=== PATIENT | female | born 1960 ===

== ENCOUNTER 2016-10-14 08:14 | Inpatient (IN) | payer MEDICAID ==
[2016-10-14] MEDS ORDERED: Sodium Chloride 0.9% 1,000 ML IV ONE ×3 (08:33→14:10)
[2016-10-14] MEDS ORDERED: Sodium Chloride 0.9% 1,000 ML ONE (09:03)
--- NOTE | 2016-10-14 09:04 | C.PDOC ---
History Of Present Illness 56 y/o female presents to the ED with complaints of right leg wound which worsened over the last week. Pt followed up with Dr Barfield in office gave topical cream. Pt has been using cream but symptoms persist. Notes h/o of wound to the area x 1 yr. Denies fever, discharge, change in sensation, trauma, SOB, calf tenderness, or any other complaints. 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 Limitations: language barrier Onset/Duration Of Symptoms: Days Current Symptoms Are (Timing): Worse Severity: Moderate Recent travel outside of the [place]: No Past Medical History Reviewed: Historical Data, Nursing Documentation, Vital Signs Vital Signs: Last Vital Signs Temp 97.9 F 10/14/16 10:14 Pulse 59 L 10/14/16 10:14 Resp 18 10/14/16 10:14 BP 112/70 10/14/16 10:14 Pulse Ox 99 10/14/16 10:14 - Medical History PMH: Hypercholesterolemia - [facility] Procedures DRAINAGE OF RIGHT FOOT SKIN, EXTERNAL APPROACH, DIAGNOSTIC (02/14/16) EXCISION OF R FOOT SUBCU/FASCIA, OPEN APPROACH (02/14/16) REPAIR R FOOT SUBCU/FASCIA, OPEN APPROACH (02/14/16) REPLACE R FOOT SKIN W NONAUT SUB, PART THICK, 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 Constitutional: Negative for: Fever, Chills Skin: Positive for: Other (right leg wound) Physical Exam - Physical Exam Appears: Non-toxic, No Acute Distress Skin: Warm, Dry Head: Atraumatic, Normacephalic Eye(s): bilateral: Normal Inspection, EOMI Nose: Normal Oral Mucosa: Moist Chest: Symmetrical Cardiovascular: Rhythm Regular, No Murmur Respiratory: Normal Breath Sounds, No Rales, No Rhonchi, No Wheezing Extremity: Normal ROM, No Calf Tenderness, Capillary Refill (< 2 sec), Other ((+ ) venous status changes to medial aspect of ankle with central crusting/scab and some ertyhema) Pulses: Left Dorsalis Pedis: Normal, Right Dorsalis Pedis: Normal Neurological/Psych: Oriented x3, Normal Speech, Normal Cognition, Normal Motor, Normal Sensation ED Course And Treatment - Laboratory Results Result Diagrams: 10/14/16 09:02 10/14/16 09:02 O2 Sat by Pulse Oximetry: 98 (room air) Pulse Ox Interpretation: Normal Progress Note: Plan: labs, EKG, UA, IV fluids, venous duplex. Pt refused pain medications. Called left message for Lico at 0915. Venous duplex negative for DVT. Case discussed with Dr Norton (per RX instructs) who instructs admission under Dr barfield. Call made out to Dr Barfield, no call back. 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 - Scribe Statement The provider has reviewed the documentation as recorded by the Scribadama Nguyen All medical record entries made by the Parrisibadama were at my direction and personally dictated by me. I have reviewed the chart and agree that the record accurately reflects my personal performance of the history, physical exam, medical decision making, and the department course for this patient. I have also personally directed, reviewed, and agree with the discharge instructions and disposition.
[2016-10-14 09:06] LABS: BASO % 0.6 % (0.0-2.0); EOS # 0.3 K/uL (0.0-0.7); EOS % 4.7 % (0.0-4.0); HEMATOCRIT 38.3 % (34.0-47.0); LYMPH # 3.3 K/uL (1.0-4.3); LYMPH % 53.3 % (20.0-40.0); MEAN CORPUSCULAR HEMOGLOBIN 29.6 pg (27.0-31.0); MEAN CORPUSCULAR HGB CONC 33.6 g/dL (33.0-37.0); MEAN PLATELET VOLUME 9.2 fL (7.2-11.7); MONO # 0.5 K/uL (0.0-0.8); MONO % 7.9 % (0.0-10.0); RED CELL DISTRIBUTION WIDTH 12.8 % (11.5-14.5); WHITE BLOOD COUNT 6.2 K/uL (4.8-10.8)
[2016-10-14 09:14] LABS: CHLORIDE 105 mmol/L (98-107)
[2016-10-14 09:15] LABS: SODIUM 141 mmol/L (132-148)
[2016-10-14 09:17] LABS: ALB/GLOB RATIO 1.4 (1.0-2.1); ALKALINE PHOSPHATASE 87 U/L (38-126); AST/SGOT 23 U/L (14-36); BILIRUBIN,TOTAL 0.8 mg/dL (0.2-1.3); CARBON DIOXIDE 27 mmol/L (22-30); GFR AFRICAN-AMERICAN > 60; TOTAL PROTEIN 7.4 g/dL (6.3-8.3)
[2016-10-14 09:18] LABS: ALT/SGPT 23 U/L (9-52); BLOOD UREA NITROGEN 15 mg/dL (7-17); CALCIUM 9.3 mg/dl (8.6-10.4); GLUCOSE,RANDOM 100 mg/dL (65-105)
[2016-10-14 09:32] LABS: INR 1.1
[2016-10-14 09:33] LABS: RBC URINE < 1 /hpf (0-3); URINE BILIRUBIN NEGATIVE (NEGATIVE); URINE BLOOD NEGATIVE (NEGATIVE); URINE COLOR Yellow (YELLOW); URINE GLUCOSE (UA) NORMAL (Normal); URINE KETONE NEGATIVE (NEGATIVE); URINE PROTEIN NEGATIVE (NEGATIVE); URINE UROBILINOGEN NORMAL mg/dL (0.2-1.0)
[2016-10-14 09:38] LABS: URINE LEUKOCYTE ESTERASE 1+ Leu/uL (Negative); WBC URINE 5 /hpf (0-5)
[2016-10-14] MEDS ORDERED: Propofol 10 mg/ml Inj (20 ML) ONE (13:06)
[2016-10-14] MEDS ORDERED: Midazolam 2 MG/2 ML VIAL ONE (13:06)
[2016-10-14] MEDS ORDERED: ceFAZolin IV 1 gm in Dextrose 1 GM/50 ML BAG IVPB ONE ×2 (13:14→13:15)
[2016-10-14] MEDS ORDERED: Bupivacaine HCl 0.25% PF (10 ml) Inj ONE (13:15)
[2016-10-14] MEDS ORDERED: HYDROmorphone 0.5 mg/0.5 ml ISec IVP PRN (13:48)
--- NOTE | 2016-10-14 17:07 | OP ---
PROCEDURE DATE: 10/14/2016 PREOPERATIVE DIAGNOSIS: Abscess and cellulitis of the right leg. POSTOPERATIVE DIAGNOSIS: Abscess and cellulitis of the right leg. PROCEDURE PERFORMED: Drainage, debridement of right leg ulcer with drainage of abscess, repair of bl ood vessel and partial tissue transfer closure. SURGEON: Declan Barfield MD. ANESTHESIA: General. ESTIMATED BLOOD LOSS: 20 mL. POSTOPERATIVE CONDITION: Stable. INDICATIONS FOR SURGERY: This is a 56-year-old female who presents with a right lower extremity ulce r surrounded by cellulitis and possible abscess. She is taken to the OR for drainage under anesthesi a with debridement. DESCRIPTION OF PROCEDURE: The patient taken to the operating room. IV sedation was administered and the right leg and ankle were prepped and draped. Local anesthesia was administered and the ulcer wa s sharply debrided and pus was drained and cultured. Bleeding was controlled using the Bovie and exp osed blood vessel was repaired. A partial tissue transfer closure was performed at the periphery. T he central portion of wound was packed open and dressed with Xeroform and a dry sterile dressing. Th e patient tolerated the procedure well, returned to recovery room in stable condition. Declan Barfield MD cc: [id number] TT: 10/14/2016 17:06:50 [place]
[2016-10-14] MEDS: ceFAZolin 1 gm FROZEN Premix 1 GM/50 ML ML IVPB SCH ×2 (19:00→22:08)
--- NOTE | 2016-10-14 20:18 | CP.PCM.CON ---
<Maik Brown - Last Filed: 10/14/16 20:04> History of Present Illness - History of Present Illness History of Present Illness: Consult Note- Hospitalist Service Patient was a 56 year old female that was sent in by Dr. Barfield for I&D of right leg ulcer. Patient was taken to OR today by Dr. Barfield for I&D. Patient has a PMHx of urinary incontinence, hyperlipidemia, chronically dry throat. Patient currently reports no acute complaints at this time. Patient reports that she had the wound for one year. She says she had surgery on the same leg for a similar problem last year. PMHx: as stated above PSHx: R ankle abscess Allergies: NKDA Fam hx: Denies Social hx: Denies smoking, alcohol, drugs Review of Systems - Constitutional Constitutional: absent: Chills, Daytime Sleepiness, Fever, Night Sweats, Weakness - EENT Nose/Mouth/Throat: absent: Nasal Congestion, Nasal Discharge - Cardiovascular Cardiovascular: absent: Chest Pain, Irregular Heart Rhythm, Leg Edema, Palpitations, Pedal Edema - Respiratory Respiratory: absent: Cough, Dyspnea, Hemoptysis, Wheezing - Gastrointestinal Gastrointestinal: absent: Abdominal Pain, Belching, Constipation, Diarrhea, Nausea, Vomiting - Genitourinary Genitourinary: absent: Difficulty Urinating, Dysuria, Flank Pain, Hematuria - Musculoskeletal Musculoskeletal: absent: Back Pain, Muscle Cramps, Numbness, Stiffness - Integumentary Integumentary: Skin Ulcer, Swelling. absent: Acne, Alopecia - Neurological Neurological: absent: Abnormal Hearing, Syncope, Weakness, Other Visual Disturbances - Psychiatric Psychiatric: absent: Anxiety, Panic Attacks, Suicidal Ideation - Endocrine Endocrine: absent: Fatigue, Palpitations Past Patient History - Infectious Disease Hx of Infectious Diseases: None - Past Medical History & Family History Past Medical History?: Yes - Past Social History Smoking Status: Never Smoked Chewing Tobacco Use: No Cigar Use: No Alcohol: None Drugs: Denies - CARDIAC Hx Hypercholesterolemia: Yes - PULMONARY Hx Respiratory Disorders: No - NEUROLOGICAL Hx Neurological Disorder: No - HEENT Hx HEENT Problems: No - RENAL Hx Chronic Kidney Disease: No - ENDOCRINE/METABOLIC Hx Endocrine Disorders: No - HEMATOLOGICAL/ONCOLOGICAL Hx Blood Disorders: No - INTEGUMENTARY Hx Dermatological Problems: No - MUSCULOSKELETAL/RHEUMATOLOGICAL Hx Falls: No - GASTROINTESTINAL Hx Gastrointestinal Disorders: No - GENITOURINARY/GYNECOLOGICAL Hx Genitourinary Disorders: No - PSYCHIATRIC Hx Substance Use: No - SURGICAL HISTORY Hx Surgeries: Yes Hx Hysterectomy: Yes Other/Comment: right foot surgery - ANESTHESIA Hx Anesthesia: Yes Hx Anesthesia Reactions: No Hx Malignant Hyperthermia: No Has any member of the family had a problem w/ anesthesia?: No Meds Allergies/Adverse Reactions: Allergies Allergy/AdvReac Type Severity Reaction Status Date / Time No Known Allergies Allergy Verified 10/14/16 08:17 - Medications Medications: Current Medications Cefazolin Sodium (Ancef) 1 gm in 50 mls @ 100 mls/hr IVPB Q8H I[facility] Tramadol HCl (Ultram) 50 mg PO TID PRN PRN Reason: pain Physical Exam - Constitutional Appears: Non-toxic, No Acute Distress - Head Exam Head Exam: ATRAUMATIC, NORMAL INSPECTION, NORMOCEPHALIC - Eye Exam Pupil Exam: NORMAL ACCOMODATION, PERRL - ENT Exam ENT Exam: Mucous Membranes Moist - Respiratory Exam Respiratory Exam: Clear to Auscultation Bilateral, NORMAL BREATHING PATTERN. absent: Prolonged Expiratory Phase, Rales, Rhonchi, Wheezes - Cardiovascular Exam Cardiovascular Exam: REGULAR RHYTHM, +S1, +S2 - GI/Abdominal Exam GI & Abdominal Exam: Normal Bowel Sounds, Soft. absent: Distended, Firm, Guarding, Tenderness - Extremities Exam Extremities exam: Positive for: normal capillary refill, pedal pulses present - Neurological Exam Neurological exam: Alert, CN II-XII Intact, Oriented x3 - Psychiatric Exam Psychiatric exam: Normal Affect, Normal Mood - Skin Skin Exam: Dry, Intact, Normal Color, Warm Results - Vital Signs Recent Vital Signs: Last Vital Signs Temp 97.4 F L 10/14/16 17:15 Pulse 60 10/14/16 17:15 Resp 20 10/14/16 17:15 BP 114/59 L 10/14/16 17:15 Pulse Ox 99 10/14/16 17:15 - Labs Result Diagrams: 10/14/16 09:02 10/14/16 09:02 Assessment & Plan (1) Cellulitis and abscess of right leg Status: Acute Comment: Management as per Dr. Barfield. Per patient, scheduled for OR on Friday. Continue Ancef 1gm IVPB Q8h. Tramadol 50mg PO TID PRN. Blood and Wound culture pending (2) Overactive bladder Status: Acute Comment: Oxybutynin XL 15mg PO Daily (3) Hyperlipidemia Status: Acute Comment: Simvastatin 20mg PO Daily (Crestor equivalent) (4) Prophylactic measure Status: Acute Comment: Pepcid 20mg PO BID. Hold anticoagulation due to surgery <Marin Britt - Last Filed: 10/15/16 09:26> Meds - Medications Medications: Current Medications Famotidine (Pepcid) 20 mg PO BID [facility] Last Admin: 10/15/16 09:24 Dose: 20 mg Cefazolin Sodium (Ancef) 1 gm in 50 mls @ 100 mls/hr IVPB Q8H [facility] Last Admin: 10/15/16 07:01 Dose: 100 mls/hr Oxybutynin Chloride (Ditropan Xl) 15 mg PO DAILY [facility] Last Admin: 10/15/16 09:24 Dose: 15 mg Rosuvastatin Calcium (Crestor) 5 mg PO HS [facility] Last Admin: 10/14/16 22:07 Dose: 5 mg Tramadol HCl (Ultram) 50 mg PO TID PRN PRN Reason: pain Last Admin: 10/14/16 22:07 Dose: 50 mg Results - Vital Signs Recent Vital Signs: Last Vital Signs Temp 98.1 F 10/15/16 08:23 Pulse 62 10/15/16 08:23 Resp 20 10/15/16 08:23 BP 128/78 10/15/16 08:23 Pulse Ox 99 10/15/16 08:23 - Labs Result Diagrams: 10/14/16 09:02 10/14/16 09:02 Attending/Attestation - Attestation I have personally seen and examined this patient.: Yes I have fully participated in the care of the patient.: Yes I have reviewed all pertinent clinical information: Yes Notes (Text): 10/15/16 09:25 Patient seen and examined at bedside I discussed the plan of care with the resident I agree with the consultation note by the resident. Thank you for allowing us to participate in the care of this patient. We will continue to follow-up the patient during his stay in the hospital.
[2016-10-15] MEDS: ceFAZolin 1 gm FROZEN Premix 1 GM/50 ML ML IVPB SCH ×3 (07:01→22:23)
[2016-10-15] MEDS: Saccharomyces Boulardi 250 mg Cap PO SCH ×2 (12:00→18:41)
--- NOTE | 2016-10-15 15:37 | CP.PCM.PN ---
<PipeWilmarahul E - Last Filed: 10/15/16 21:49> Subjective - Date & Time of Evaluation Date of Evaluation: 10/15/16 Time of Evaluation: 10:15 - Subjective Subjective: Medicine Note PGY1 - Dr. Freed's Service Patient was seen and examined at bedside s/p day 1. Patient had no event overnight. Patient states that she is doing well and will be going back to the OR 10/16/16 for another Incision and Drainage procedure on RLL as per Gen surgery. Patient is passing flatus. Patient denies fever, chills, nausea, vomiting, dizziness, chest pain, dyspnea, and leg pain. Patient is ambulating with walker. Objective - Vital Signs/Intake and Output Vital Signs (last 24 hours): Temp Pulse Resp BP Pulse Ox 98.1 F 62 20 128/78 99 10/15/16 08:23 10/15/16 08:23 10/15/16 08:23 10/15/16 08:23 10/15/16 08:23 Intake and Output: 10/15/16 10/15/16 06:59 18:59 Intake Total 210 Balance 210 - Medications Medications: Current Medications Famotidine (Pepcid) 20 mg PO BID [facility] Last Admin: 10/15/16 09:24 Dose: 20 mg Cefazolin Sodium (Ancef) 1 gm in 50 mls @ 100 mls/hr IVPB Q8H [facility] Last Admin: 10/15/16 14:35 Dose: 100 mls/hr Oxybutynin Chloride (Ditropan Xl) 15 mg PO DAILY [facility] Last Admin: 10/15/16 09:24 Dose: 15 mg Rosuvastatin Calcium (Crestor) 5 mg PO HS [facility] Last Admin: 10/14/16 22:07 Dose: 5 mg Saccharomyces Boulardii (Florastor) 250 mg PO BID [facility] Last Admin: 10/15/16 12:00 Dose: Not Given Tramadol HCl (Ultram) 50 mg PO TID PRN PRN Reason: pain Last Admin: 10/14/16 22:07 Dose: 50 mg - Labs Labs: PT 12.1 SECONDS (9.7-12.2) 10/14/16 09:14 INR 1.1 10/14/16 09:14 APTT 26 SECONDS (21-34) 10/14/16 09:14 - Constitutional Appears: Well, No Acute Distress - Head Exam Head Exam: NORMOCEPHALIC - Eye Exam Eye Exam: EOMI, Normal appearance - ENT Exam ENT Exam: Mucous Membranes Moist, Normal Exam - Respiratory Exam Respiratory Exam: Clear to Ausculation Bilateral, NORMAL BREATHING PATTERN - Cardiovascular Exam Cardiovascular Exam: REGULAR RHYTHM, +S1, +S2 - GI/Abdominal Exam GI & Abdominal Exam: Soft (Non-distended, Non-tender), Normal Bowel Sounds - Extremities Exam Extremities Exam: Normal Capillary Refill (Right Leg s/p I & D, not warm to touch, mild tenderness ), Normal Inspection - Neurological Exam Neurological Exam: Alert, Awake, Oriented x3 - Psychiatric Exam Psychiatric exam: Normal Affect, Normal Mood - Skin Skin Exam: Dry, Normal Color, Warm Assessment and Plan - Assessment and Plan (Free Text) Assessment: 1. Cellulitis and Abscess of the right leg S/p I&D DAY 1 As per management by Dr. Barfield, Patient is scheduled for another I & D on 10/16/16 Baseline EKG and Chest X-Ray ordered 10/15/16 for I & D procedure on 10/16/16 Continue Ancef 1gm IVPB Q8h Continue Tramadol 50 mg PO TID PRN Blood Culture - No growth after 24 hours Wound Culture - Pending 2. Hyperlipidemia - Chronic Rosuvastatin Calcium 5mg PO HS 3. Urinary Incontinence - Chronic Oxybutynin Chloride 15mg PO Daily 4. Prophylatic measure Pepcid 20mg PO BID Florastor 250mg PO BID <Jeanne Freed V - Last Filed: 10/16/16 00:29> Objective - Vital Signs/Intake and Output Vital Signs (last 24 hours): Temp Pulse Resp BP Pulse Ox 97.9 F 57 L 20 101/61 98 10/15/16 16:59 10/15/16 16:59 10/15/16 16:59 10/15/16 16:59 10/15/16 16:59 Intake and Output: 10/15/16 10/16/16 18:59 06:59 Intake Total 450 Balance 450 - Medications Medications: Current Medications Famotidine (Pepcid) 20 mg PO BID [facility] Last Admin: 10/15/16 18:42 Dose: 20 mg Cefazolin Sodium (Ancef) 1 gm in 50 mls @ 100 mls/hr IVPB Q8H [facility] Last Admin: 10/15/16 22:23 Dose: 100 mls/hr Oxybutynin Chloride (Ditropan Xl) 15 mg PO DAILY [facility] Last Admin: 10/15/16 09:24 Dose: 15 mg Rosuvastatin Calcium (Crestor) 5 mg PO HS [facility] Last Admin: 10/15/16 22:20 Dose: 5 mg Saccharomyces Boulardii (Florastor) 250 mg PO BID [facility] Last Admin: 10/15/16 18:41 Dose: 250 mg Tramadol HCl (Ultram) 50 mg PO TID PRN PRN Reason: pain Last Admin: 10/14/16 22:07 Dose: 50 mg - Labs Labs: PT 12.1 SECONDS (9.7-12.2) 10/14/16 09:14 INR 1.1 10/14/16 09:14 APTT 26 SECONDS (21-34) 10/14/16 09:14 Attending/Attestation - Attestation I have personally seen and examined this patient.: Yes I have fully participated in the care of the patient.: Yes I have reviewed all pertinent clinical information, including history, physical exam and plan: Yes Notes (Text): This is a late computer entry for 10/15/16. Patient seen, examined, case discussed with day-time resident. Patient is under general surgery for cellulitis and abscess of the right leg. Surgical decision making including preoperative/intra and postoperative per discretion of surgery. Pain management and anticoagulation per surgery. Patient is scheduled for OR tomorrow, 10/16/[address] Martínez. Patient ordered for baseline EKG and chest xray. EKG shows sinus bradycardia. Patient is asymptomatic. Patient's chest xray appears no active disease; official report pending. Patient is considered low intraoperative cardiac risk per Detksy's criteria. Medicine will continue to follow while patient is in the hospital Assessment/Plan (1) Cellulitis and abscess of right leg Status: Acute Comment: Management as per Dr. Barfield (General surgery). POD 1: drainage, debridement of right leg ulcer with drainage of abscess, repair of blood vessel and partial tissue transfer closure Per patient, scheduled for OR on 10/16/16 Continue Ancef 1gm IVPB Q8h. Tramadol 50mg PO TID PRN. Blood and Wound culture pendin Start on Florastor 250mg PO bid (2) Overactive bladder Status: Chronic Comment: Oxybutynin XL 15mg PO Daily (3) Hyperlipidemia Status: Chronic Comment: Simvastatin 20mg PO Daily (Crestor equivalent) (4) Prophylactic measure Status: Acute Comment: Pepcid 20mg PO BID. Anticoagulation to be determined by surgery.
[2016-10-16] MEDS: ceFAZolin 1 gm FROZEN Premix 1 GM/50 ML ML IVPB SCH ×3 (06:11→22:08)
[2016-10-16 06:58] LABS: BASO % 0.5 % (0.0-2.0); CHLORIDE 104 mmol/L (98-107); EOS # 0.4 K/uL (0.0-0.7); EOS % 5.4 % (0.0-4.0); HEMATOCRIT 40.5 % (34.0-47.0); LYMPH # 3.1 K/uL (1.0-4.3); LYMPH % 45.3 % (20.0-40.0); MEAN CELL VOLUME 87.9 fL (81.0-99.0); MEAN PLATELET VOLUME 9.4 fL (7.2-11.7); MONO # 0.5 K/uL (0.0-0.8); MONO % 7.5 % (0.0-10.0); NRBC % 0.1 % (0.0-2.0); RED CELL DISTRIBUTION WIDTH 13.1 % (11.5-14.5); SODIUM 139 mmol/L (132-148); WHITE BLOOD COUNT 6.8 K/uL (4.8-10.8)
[2016-10-16 07:00] LABS: GFR AFRICAN-AMERICAN > 60
[2016-10-16 07:01] LABS: ALB/GLOB RATIO 1.4 (1.0-2.1); ALKALINE PHOSPHATASE 74 U/L (38-126); ALT/SGPT 18 U/L (9-52); AST/SGOT 24 U/L (14-36); BILIRUBIN,TOTAL 0.8 mg/dL (0.2-1.3); BLOOD UREA NITROGEN 11 mg/dL (7-17); CARBON DIOXIDE 25 mmol/L (22-30); GLUCOSE,RANDOM 97 mg/dL (65-105); PHOSPHOROUS 3.5 mg/dL (2.5-4.5); TOTAL PROTEIN 7.1 g/dL (6.3-8.3)
--- NOTE | 2016-10-16 08:28 | RAD ---
HISTORY: For OR on 10/16 COMPARISON: 06/20/2014 FINDINGS: LUNGS: No active pulmonary disease. PLEURA: No significant pleural effusion identified, no pneumothorax apparent. CARDIOVASCULAR: Normal. OSSEOUS STRUCTURES: No significant abnormalities. VISUALIZED UPPER ABDOMEN: Normal. OTHER FINDINGS: None. IMPRESSION: No active disease.
[2016-10-16] MEDS: Saccharomyces Boulardi 250 mg Cap PO SCH ×2 (09:21→19:19)
[2016-10-16] MEDS ORDERED: Midazolam 2 MG/2 ML VIAL ONE (16:18)
[2016-10-16] MEDS ORDERED: Propofol 10 mg/ml Inj (20 ML) ONE (16:18)
--- NOTE | 2016-10-16 16:24 | VASCLAB ---
PROCEDURE: Right Lower Extremity Venous Duplex Exam. HISTORY: pain PRIORS: None. TECHNIQUE: Right common femoral, femoral, popliteal and posterior tibial, peroneal and great saphenous veins were evaluated. Flow was assessed with color Doppler, compressibility, assessment of phasic flow and augmentation response. Report prepared by TANG Villalobos, RVT FINDINGS: RIGHT: 1. Common Femoral Vein: 1.1. Compressibility - Fully compressible: Thrombus - None: Flow - Phasic: Augmentation -Normal: Reflux - None. 2. Femoral Vein: 2.1. Compressibility - Fully compressible: Thrombus - None: Flow - Phasic: Augmentation -Normal: Reflux - None. 3. Popliteal Vein: 3.1. Compressibility - Fully compressible: Thrombus - None: Flow - Phasic: Augmentation -Normal: Reflux - None. 4. Posterior Tibial Vein: 4.1. Compressibility - Fully compressible: Thrombus - None: Flow - Phasic: Augmentation -Normal: Reflux - None. 5. Peroneal Vein: 5.1. Compressibility - Fully compressible: Thrombus - None: Flow - Phasic: Augmentation -Normal: Reflux - Severe. 6. Great Saphenous Vein: 6.1. Compressibility - Fully compressible: Thrombus -None: Flow - Phasic: Augmentation - Normal: Reflux - None. OTHER FINDINGS: Severe valvular incompetence of the right posterior tibial vein. IMPRESSION: No evidence of deep or superficial vein thrombosis of the right lower extremity with excellent venous flow. Normal venous flow noted in the left common femoral vein.
[2016-10-16] MEDS ORDERED: Lactated Ringer's 1,000 ML IV ONE ×2 (16:25→17:03)
[2016-10-16] MEDS ORDERED: ePHEDrine 50 mg/ml Inj ONE (16:42)
--- NOTE | 2016-10-16 18:26 | OP ---
PROCEDURE DATE: 10/16/2016 PREOPERATIVE DIAGNOSIS: Nonhealing venous stasis ulcer of the right ankle. POSTOPERATIVE DIAGNOSIS: Nonhealing venous stasis ulcer of the right ankle. PROCEDURE PERFORMED: Debridement and placement of Dermagraft nonhealing ulcer of the right ankle. SURGEON: Declan Barfield MD ANESTHESIA: General. ESTIMATED BLOOD LOSS: Was 20 mL. POSTOPERATIVE CONDITION: Stable. INDICATIONS FOR SURGERY: This is a 56-year-old female with recurrent nonhealing right ankle venous s tasis ulcer. Was taken to the OR yesterday for drainage of an abscess and debridement. Today will u ndergo re-drainage with partial closure and placement of a Dermagraft. PROCEDURE: The patient was taken to the operating room. General anesthesia administered and the rig ht leg and ankle were prepped and draped. The wound was aggressively debrided and pulse irrigated. Bleeding was controlled using the Bovie and an exposed blood vessel was repaired. Generous tissue fl aps were made at the periphery and a partial tissue transfer closure was performed. A Dermagraft was then placed over the central portion of the wound and dressed with Adaptic and dressed sterilely. The patient tolerated procedure well, returned to recovery room in stable condition. Declan Barfield MD cc: [id number] TT: 10/16/2016 18:25:53 [email or web address]
[2016-10-16 18:44] VITALS: RESP 20
--- NOTE | 2016-10-16 19:24 | CP.PCM.PN ---
Subjective - Date & Time of Evaluation Date of Evaluation: 10/16/16 Time of Evaluation: 07:25 - Subjective Subjective: Medicine-Note (PGY1) : Dr. Freed's Service Patient was seen and examined s/p day 2. Patient had no acute event overnight. Patients that she is doing well. Patient denies fever, chills, nausea, vomiting , CP, SOB. Patient has not had a bowel movement but she is passing flatus. Objective - Vital Signs/Intake and Output Vital Signs (last 24 hours): Temp Pulse Resp BP Pulse Ox 97.6 F 60 20 115/66 98 10/16/16 18:43 10/16/16 18:43 10/16/16 18:43 10/16/16 18:43 10/16/16 18:43 Intake and Output: 10/16/16 10/17/16 18:59 06:59 Intake Total 50 Balance 50 - Medications Medications: Current Medications Famotidine (Pepcid) 20 mg PO BID [facility] Last Admin: 10/16/16 19:18 Dose: 20 mg Cefazolin Sodium (Ancef) 1 gm in 50 mls @ 100 mls/hr IVPB Q8H [facility] Last Admin: 10/16/16 14:30 Dose: 100 mls/hr Oxybutynin Chloride (Ditropan Xl) 15 mg PO DAILY [facility] Last Admin: 10/16/16 09:20 Dose: Not Given Rosuvastatin Calcium (Crestor) 5 mg PO HS [facility] Last Admin: 10/15/16 22:20 Dose: 5 mg Saccharomyces Boulardii (Florastor) 250 mg PO BID [facility] Last Admin: 10/16/16 19:19 Dose: 250 mg Tramadol HCl (Ultram) 50 mg PO TID PRN PRN Reason: pain Last Admin: 10/14/16 22:07 Dose: 50 mg - Labs Labs: 10/16/16 06:23 10/16/16 06:23 PT 12.1 SECONDS (9.7-12.2) 10/14/16 09:14 INR 1.1 10/14/16 09:14 APTT 26 SECONDS (21-34) 10/14/16 09:14 - Constitutional Appears: Well, No Acute Distress - Head Exam Head Exam: NORMAL INSPECTION, NORMOCEPHALIC - Eye Exam Eye Exam: EOMI, Normal appearance - ENT Exam ENT Exam: Mucous Membranes Moist, Normal Exam - Respiratory Exam Respiratory Exam: Clear to Ausculation Bilateral, NORMAL BREATHING PATTERN - Cardiovascular Exam Cardiovascular Exam: REGULAR RHYTHM, +S1, +S2 - GI/Abdominal Exam GI & Abdominal Exam: Soft, Normal Bowel Sounds (Non-distende, non-tender) - Extremities Exam Extremities Exam: Normal Capillary Refill, Normal Inspection, Tenderness (RLL Mildly tender ) - Neurological Exam Neurological Exam: Alert, Altered, Awake, Oriented x3 - Psychiatric Exam Psychiatric exam: Normal Affect, Normal Mood - Skin Skin Exam: Dry, Normal Color, Warm Assessment and Plan - Assessment and Plan (Free Text) Assessment: 1. Cellulitis and Abscess of the right leg S/p first I&D DAY 2 As per management by Dr. Barfield, Patient is scheduled for another I & D on 10/16/16 Baseline EKG and Chest X-Ray ordered 10/15/16 for I & D procedure on 10/16/16 * Chest X-Ray: No active disease * EKG: Sinus bradycardia (Asymptomatic) Continue Ancef 1gm IVPB Q8h Continue Tramadol 50 mg PO TID PRN Blood Culture x2 - No growth after 48 hours (10/14/16) Wound Culture x2 - (+) S. aureus (10/14/16) Repeat I & D 10/16/[address] Barfield 2. Hyperlipidemia - Chronic Rosuvastatin Calcium 5mg PO HS 3. Urinary Incontinence - Chronic Oxybutynin Chloride 15mg PO Daily 4. Prophylatic measure Pepcid 20mg PO BID Florastor 250mg PO BID
--- NOTE | 2016-10-17 00:45 | CARD ---
APPROVED REPORT EKG Measurement Heart [id number] <Conclusion> Sinus bradycardia Cannot rule out Anterior infarct, age undetermined Abnormal ECG
[2016-10-17] MEDS: ceFAZolin 1 gm FROZEN Premix 1 GM/50 ML ML IVPB SCH (06:14)
[2016-10-17 07:07] LABS: BASO % 0.4 % (0.0-2.0); EOS # 0.5 K/uL (0.0-0.7); EOS % 6.4 % (0.0-4.0); HEMATOCRIT 40.7 % (34.0-47.0); LYMPH # 3.2 K/uL (1.0-4.3); MEAN CELL VOLUME 88.2 fL (81.0-99.0); MEAN CORPUSCULAR HEMOGLOBIN 29.9 pg (27.0-31.0); MEAN CORPUSCULAR HGB CONC 33.9 g/dL (33.0-37.0); MEAN PLATELET VOLUME 9.4 fL (7.2-11.7); MONO # 0.5 K/uL (0.0-0.8); MONO % 7.5 % (0.0-10.0); WHITE BLOOD COUNT 7.2 K/uL (4.8-10.8)
[2016-10-17 07:40] LABS: CHLORIDE 104 mmol/L (98-107); POTASSIUM 4.8 mmol/L (3.6-5.2); SODIUM 142 mmol/L (132-148)
[2016-10-17 07:42] LABS: BILIRUBIN,TOTAL 0.8 mg/dL (0.2-1.3); GFR AFRICAN-AMERICAN > 60
[2016-10-17 07:43] LABS: ALB/GLOB RATIO 1.2 (1.0-2.1); ALKALINE PHOSPHATASE 82 U/L (38-126); ALT/SGPT 16 U/L (9-52); AST/SGOT 28 U/L (14-36); BLOOD UREA NITROGEN 13 mg/dL (7-17); CALCIUM 9.6 mg/dl (8.6-10.4); CARBON DIOXIDE 29 mmol/L (22-30); GLUCOSE,RANDOM 101 mg/dL (65-105); MAGNESIUM 2.1 mg/dL (1.6-2.3); PHOSPHOROUS 3.9 mg/dL (2.5-4.5); TOTAL PROTEIN 7.5 g/dL (6.3-8.3)
[2016-10-17 08:50] VITALS: BP 106/66; PULSE 57; TEMP 98.4; O2SAT 96
--- NOTE | 2016-10-17 20:29 | CP.PCM.PN ---
Subjective - Date & Time of Evaluation Date of Evaluation: 10/17/16 Time of Evaluation: 07:50 - Subjective Subjective: Medicine-Note (PGY1) : Dr. Freed's Service Patient was seen and examined s/p day 1 2nd Incision and drainage on right low leg. Patient had no acute event overnight. Patients states that she is doing well. Patient has has a bowel movement and she is passing flatus. Patient denies fever, chills, nausea, vomiting, CP, SOB, headache, dizziness, urinary symptoms. Patient is ambulating well with walker and plans to ambulate at home with crutches. Objective - Vital Signs/Intake and Output Vital Signs (last 24 hours): Temp Pulse Resp BP Pulse Ox 98.4 F 57 L 20 106/66 96 10/17/16 08:48 10/17/16 08:48 10/17/16 08:48 10/17/16 08:48 10/17/16 08:48 - Labs Labs: 10/17/16 06:53 10/17/16 06:53 PT 12.1 SECONDS (9.7-12.2) 10/14/16 09:14 INR 1.1 10/14/16 09:14 APTT 26 SECONDS (21-34) 10/14/16 09:14 - Constitutional Appears: Well, No Acute Distress - Head Exam Head Exam: NORMAL INSPECTION, NORMOCEPHALIC - Eye Exam Eye Exam: EOMI, Normal appearance - ENT Exam ENT Exam: Mucous Membranes Moist, Normal Exam - Respiratory Exam Respiratory Exam: Clear to Ausculation Bilateral, NORMAL BREATHING PATTERN - Cardiovascular Exam Cardiovascular Exam: REGULAR RHYTHM, +S1, +S2 - GI/Abdominal Exam GI & Abdominal Exam: Soft, Normal Bowel Sounds - Extremities Exam Extremities Exam: Normal Capillary Refill, Normal Inspection - Neurological Exam Neurological Exam: Alert, Awake, Oriented x3 - Psychiatric Exam Psychiatric exam: Normal Affect, Normal Mood - Skin Skin Exam: Dry, Normal Color, Warm Assessment and Plan - Assessment and Plan (Free Text) Plan: 1. Cellulitis and Abscess of the right leg S/p first I&D DAY 3 and S/p second I & D day 1 Will be discharge by Dr. Barfield today 10/17/16 As per management by Dr. Barfield, Patient is scheduled for another I & D on 10/16/16 Baseline EKG and Chest X-Ray ordered 10/15/16 for I & D procedure on 10/16/16 * Chest X-Ray: No active disease * EKG: Sinus bradycardia (Asymptomatic) Continue Ancef 1gm IVPB Q8h Continue Tramadol 50 mg PO TID PRN Blood Culture x2 - No growth after 48 hours (10/14/16) Wound Culture x2 - (+) S. aureus (10/14/16) 2. Hyperlipidemia - Chronic Rosuvastatin Calcium 5mg PO HS 3. Urinary Incontinence - Chronic Oxybutynin Chloride 15mg PO Daily 4. Prophylatic measure Pepcid 20mg PO BID Florastor 250mg PO BID
== END 2016-10-17 10:27 | disposition home or self-care (01) | DRG 263 ==
LOC: C.ER 08:14 → C.SDS 09:50 → C.6T 14:17
PROVIDERS: ADMIT Surgery; ATTEND Surgery
PROC: 0H9MXZZ Drainage of Right Foot Skin, External Approach (ICD-10-PCS; 2016-10-14)
PROC: 0JBQ0ZZ Excision of Right Foot Subcutaneous Tissue and Fascia, Open Approach (ICD-10-PCS; principal; 2016-10-14 16:45)
PROC: 0HRMXK4 Replacement of Right Foot Skin with Nonautologous Tissue Substitute, Partial Thickness, External Approach (ICD-10-PCS; 2016-10-16)
PROC: 0JBQ0ZZ Excision of Right Foot Subcutaneous Tissue and Fascia, Open Approach (ICD-10-PCS; 2016-10-16)
PROC: 0H9MXZZ Drainage of Right Foot Skin, External Approach (ICD-10-PCS; 2016-10-16)
DX: L03.115 Cellulitis of right lower limb (principal); L97.319 Non-pressure chronic ulcer of right ankle with unspecified severity; L02.415 Cutaneous abscess of right lower limb; I87.2 Venous insufficiency (chronic) (peripheral); I83.013 Varicose veins of right lower extremity with ulcer of ankle; K21.9 Gastro-esophageal reflux disease without esophagitis; N32.81 Overactive bladder; N39.498 Other specified urinary incontinence; E78.5 Hyperlipidemia, unspecified; E78.00 Pure hypercholesterolemia, unspecified; Z90.710 Acquired absence of both cervix and uterus